=== PATIENT | female | born 1990 | race Caucasian/White ===

== ENCOUNTER 2017-09-10 07:42 | Observation (INO) | payer OTHER ==
[~2017-09-10] VITALS: Ht 170.2 cm; Wt 57.0 kg
[2017-09-10 08:16] LABS: BASOPHILS # (AUTO) 0.04 x10^3/uL (0-0.1); BASOPHILS % (AUTO) 0 % (0-1); EOSINOPHILS # (AUTO) 0.02 x10^3/uL (0-0.4); EOSINOPHILS % (AUTO) 0 % (1-7); LYMPHOCYTES % (AUTO) 26 % (22-44); MD NO; MEAN CORPUSCULAR HEMOGLOBIN 31.2 pg (27.0-34.8); MEAN CORPUSCULAR HGB CONC 33.1 g/dL (32.4-35.8); MEAN CORPUSCULAR VOLUME 94.3 fL (80-100); MEAN PLATELET VOLUME 7.8 fL (7.4-10.4); MONOCYTES # (AUTO) 0.45 x10^3/uL (0.2-0.8); MONOCYTES % (AUTO) 5 % (2-9); NEUTROPHILS # (AUTO) 6.65 x10^3/uL (1.8-6.8); NEUTROPHILS % (AUTO) 69 % (42-75); PLATELET COUNT 296 x10^3/uL (130-400); RED BLOOD COUNT 4.62 x10^6/uL (3.82-5.3); RED CELL DISTRIBUTION WIDTH 12.3 % (9.6-15.2)
[2017-09-10 08:27] LABS: ALANINE AMINOTRANSFERASE 21 U/L (12-78); ALBUMIN 3.9 g/dL (3.4-5.0); ANION GAP 6 mmol/L (5-15); CHLORIDE 114 mmol/L (98-107); CREATININE 0.81 mg/dL (0.55-1.02); SALICYLATE LEVEL 2.3 mg/dL (2.8-20.0)
[2017-09-10] MEDS ORDERED: LISD40CA3 PO (08:27)
[2017-09-10 08:29] LABS: ACETAMINOPHEN < 2 mcg/mL (10-30); ALKALINE PHOSPHATASE 50 U/L (45-117); BILIRUBIN,TOTAL 0.2 mg/dL (0.2-1.0); TOTAL PROTEIN 7.4 g/dL (6.4-8.2)
[2017-09-10] MEDS ORDERED: LIDOCAINE-MPF 2% ,5ML ONE ×2 (12:56→13:07)
[2017-09-10] MEDS ORDERED: LIDOCAINE 2%, 10ML INFIL ONE (13:00)
[2017-09-10 13:33] LABS: AMPHETAMINE SCREEN, URINE Positive (Negative); BARBITURATE SCREEN, URINE Negative (Negative); BENZODIAZEPINE SCREEN, URINE Negative (Negative); CANNABINOID SCREEN, URINE Negative (Negative); COCAINE SCREEN, URINE Positive (Negative); METHADONE SCREEN, URINE Negative (Negative); OPIATE SCREEN, URINE Negative (Negative)
[2017-09-10] MEDS ORDERED: ONDANSETRON ODT 4 MG PO PRN (14:00)
[2017-09-10 20:55] VITALS: BP 99/69
[2017-09-11] MEDS: LORazepam 1MG TABLET PO PRN ×2 (00:05→21:48)
[2017-09-11 08:11] VITALS: BP 106/68
[2017-09-11] MEDS ORDERED: LISDEXAMFETAMINE DIMESYLATE 40 MG PO SCH (09:00)
[2017-09-11] MEDS ORDERED: LORazepam 1MG TABLET ONE (21:47)
[2017-09-11 21:55] VITALS: BP 109/74
== END 2017-09-11 23:46 ==
LOC: ED 12:17 → EDIP 12:18 → ED 12:45 → 2N 20:33
PROVIDERS: ADMIT Hospitalist; ATTEND Hospitalist
DX: T14.91XA Suicide attempt, initial encounter (principal); F32.9 Major depressive disorder, single episode, unspecified; F41.9 Anxiety disorder, unspecified; F14.90 Cocaine use, unspecified, uncomplicated; F10.129 Alcohol abuse with intoxication, unspecified; E83.51 Hypocalcemia; F90.9 Attention-deficit hyperactivity disorder, unspecified type; Y93.89 Activity, other specified; X78.8XXA Intentional self-harm by other sharp object, initial encounter; Y92.89 Other specified places as the place of occurrence of the external cause; Y99.8 Other external cause status
CPT/HCPCS: 36415; 80053; 80307; 80329; 84703; 85025; 99285; G0378; G0480